=== PATIENT | female | born 1945 | race Two or more races ===

== ENCOUNTER → 2017-11-16 | Outpatient (CLI) | payer OTHER ==
[~2017-11-16] MED LIST: HYZAAR 100/25 T1 TAB PO; NORVASC5 MG PO; ZOCOR20 MG PO
== END | disposition home or self-care (01) ==
LOC: NUCLEAR 07:00
DX: E05.00 Thyrotoxicosis with diffuse goiter without thyrotoxic crisis or storm (principal)
CPT/HCPCS: 78012; A9531

== ENCOUNTER 2018-03-20 07:47 | Outpatient (CLI) | payer OTHER | END 2018-03-20 08:29 | disposition home or self-care (01) | LOC: SONOGRAMA 07:47 | DX: N60.11 Diffuse cystic mastopathy of right breast (principal); N60.12 Diffuse cystic mastopathy of left breast; N63.23 Unspecified lump in the left breast, lower outer quadrant ==

== ENCOUNTER 2018-06-05 07:12 | Day surgery (SDC) | payer OTHER ==
[~2018-06-05 07:12] MED LIST changes: +ASA81 MG PO; +FENOFIBRATE160 MG PO; +VITAMIN D10000 UNIT PO
== END 2018-06-05 12:40 | disposition home or self-care (01) ==
LOC: CIR.AMB 07:12 → EDBD 07:12 → CIR.AMB 12:40
DX: N60.22 Fibroadenosis of left breast (principal); N60.42 Mammary duct ectasia of left breast; N60.82 Other benign mammary dysplasias of left breast; N60.92 Unspecified benign mammary dysplasia of left breast

== ENCOUNTER 2019-05-11 08:56 | Outpatient (CLI) | payer OTHER | END 2019-05-11 09:16 | disposition home or self-care (01) | LOC: LAB 08:56 | DX: R80.8 Other proteinuria (principal); N19 Unspecified kidney failure ==

== ENCOUNTER 2019-07-03 06:30 | Day surgery (SDC) | payer OTHER | END 2019-07-03 09:30 | disposition home or self-care (01) | LOC: AMB-ENDOS 06:30 | DX: K29.50 Unspecified chronic gastritis without bleeding (principal) ==

== ENCOUNTER 2021-08-19 08:00 | Outpatient (CLI) | payer OTHER | END 2021-08-19 08:30 | disposition home or self-care (01) | LOC: PPH VACUNA 08:00 | PROVIDERS: ATTEND Emergency Medicine Pediatric Emergency Medicine | DX: Z23 Encounter for immunization (principal) ==

== ENCOUNTER 2022-01-12 06:09 | Day surgery (SDC) | payer OTHER ==
[~2022-01-12 06:09] MED LIST changes: +EVISTA PO; +VITAMIN B PO
[2022-01-12] MEDS ORDERED: DUI500 PO (08:46)
[2022-01-12] MEDS ORDERED: PERCOCET 5-3251 EACH PO (08:46)
[2022-01-12] MEDS ORDERED: ALEVE220 M1 PO (08:46)
== END 2022-01-12 11:30 | disposition home or self-care (01) ==
LOC: CIR.AMB 06:09
PROVIDERS: ATTEND Orthopaedic Surgery
DX: S52.612A Displaced fracture of left ulna styloid process, initial encounter for closed fracture (principal); S52.692A Other fracture of lower end of left ulna, initial encounter for closed fracture; I10 Essential (primary) hypertension; E06.9 Thyroiditis, unspecified; E78.5 Hyperlipidemia, unspecified; M81.0 Age-related osteoporosis without current pathological fracture
CPT/HCPCS: 20902; 25609; 25652; L8699